=== PATIENT | female | born 1975 | race African-American/Black ===

== ENCOUNTER → 2017-06-02 | Outpatient (CLI) | payer OTHER | LOC: RAD 10:39 | DX: M54.41 Lumbago with sciatica, right side (principal) ==

== ENCOUNTER → 2018-04-26 | Outpatient (CLI) | payer OTHER | LOC: BC 01:53 | DX: N60.02 Solitary cyst of left breast (principal); N63.20 Unspecified lump in the left breast, unspecified quadrant ==

== ENCOUNTER → 2018-10-04 | Outpatient (CLI) | payer OTHER | LOC: RAD 05:28 → ULTRA 05:28 → RAD 14:35 | DX: N60.11 Diffuse cystic mastopathy of right breast (principal); N60.12 Diffuse cystic mastopathy of left breast ==

== ENCOUNTER → 2018-10-11 | Outpatient (CLI) | payer OTHER ==
--- NOTE | ~2018-10-11 | PATH ---
[facility] [address] [place] [address] PATHOLOGY RPT PROCEDURE Name: HANNA GRIFFITHS Room #: REG HIPOLITO Zuniga.#: [id number] Admission: 10/11/18 Date of : 73 Discharge: Report #: [id number] Path Case #: [id number] [facility] Accession Number: [id number] . 01 Material submitted: . LEFT BREAST MASS 1:00, 8 CMFN . 01 Clinical history: . Mass breast 1:00 8 cm . 02 Diagnosis: Breast, left breast mass 1:00, 8 cm from nipple, needle core biopsy: - Benign breast tissue with fibroadenomatoid changes, usual ductal hyperplasia, columnar cell change and apocrine metaplasia. - Negative for atypia or malignancy. [facility]/10/13/2018 . 02 Comment: A CK5/6 immunohistochemical stain is performed on block A3 and shows intact mosaic pattern, consistent with usual ductal hyperplasia. . Apprentice Plumber slides are co-reviewed by Dr. Wanda Feliciano who concurs with my diagnosis. (IUV:pit 10/13/2018) . 02 Electronically signed: . Liza Chavez MD, Pathologist NPI- [id number] . 01 Gross description: . The specimen is received in formalin, labeled "Hanna Griffiths, left breast 1:00 8 cm" and consists of 8 needle cores of pink-harrison to yellow tissue measuring between 0.9 cm and 2.3 cm in length and ranging from 0.3-0.4 cm in diameter. They are entirely submitted in A1-A3. The cold ischemic time is 5 minutes and the total formalin fixation time is greater than 6 hours but less than 72 hours. (SDY; 10/11/2018) MORGANU/MORGANU . 02 Pathologist provided ICD-10: N62, N60.22 . 02 CPT . 589318, N13725 Specimen Comment: A courtesy copy of this report has been sent to Specimen Comment: [phone], . Specimen Comment: Report sent to / [place] [address] PATHOLOGY RPT PROCEDURE Name: HANNA GRIFFITHS Room #: REG CL Nigel#: [id number] Admission: 10/11/18 Date of : 73 Discharge: Report #: [id number] Path Case #: [id number] Performed at: 01 [facility] Tapia [address] [facility] [address], [place], [place] [id number] MD Cayetano Carroll MD Phone: [phone] Performed at: [address] [id number] MD Liza Chavez MD Phone: [phone]
== END | disposition home or self-care (01) ==
LOC: ULTRA 01:12
DX: N60.92 Unspecified benign mammary dysplasia of left breast (principal); N60.22 Fibroadenosis of left breast; R92.1 Mammographic calcification found on diagnostic imaging of breast

== ENCOUNTER → 2019-05-30 | Outpatient (CLI) | payer OTHER ==
--- NOTE | 2019-06-01 11:09 | PATH ---
[facility] [address] [place] [address] PATHOLOGY RPT PROCEDURE Name: ELLY CARVER Room #: REG [facility]..#: [id number] ������������������ Admission: 05/30/19 ������������������ Date of : 73 Discharge: Report #: [id number] Path Case #: [id number] [facility] Accession Number: [id number] . 01 Material submitted: . PART A: breast - RIGHT BREAST MASS,1:00. Modifiers: right, 1:00 PART B: breast - RIGHT BREAST MASS, 9:00. Modifiers: right, 9:00 . 01 Clinical history: . Complex masses, right breast . 02 Diagnosis: A. Breast, right breast 1:00, 3 cm from nipple, needle core biopsy: - Fibroadenoma associated with adenosis and columnar cell change. - Negative for atypia or malignancy. . B. Breast, right breast 9:00, 2 cm from nipple, needle core biopsy: - Fibroadenoma. - Negative for atypia or malignancy. . (IUV:parts person; 05/31/2019) [facility]/05/31/2019 . 02 Comment: Dr. Wanda Feliciano has seen account services representative slides (level 2 slides) of this case and concurs with the diagnosis rendered. (IUV:parts person; 05/31/2019) . 02 Electronically signed: . Liza Chavez MD, Pathologist NPI- [id number] . 01 Gross description: . A. Received in formalin labeled "Mali Carver, right breast 1:00 3 cm," are multiple needle cores of yellow-herrera fibrofatty tissue measuring 1.3 x 0.5 x 0.1 cm in aggregate dimensions. The tissue is submitted in its entirety in cassette A1 through A3. The cold ischemic time is none provided. The total formalin fixation time is greater than 7 hours and less than 72 hours. . B. Received in formalin labeled "Mali Carver, right breast 9:00 2 cm," are multiple needle cores of yellow-herrera fibrofatty tissue measuring 2.0 x 0.6 x 0.2 cm in aggregate dimensions. The tissue is submitted in its entirety in cassette B1 through B3. The cold ischemic time is unknown. The total formalin fixation time is greater than 7 hours and less than 72 hours. (TSD; 05/30/2019) [address] [address] PATHOLOGY RPT PROCEDURE Name: CARVER,ELLY Rex Room #: REG HIPOLITO Manning#: [id number] ������������������ Admission: 05/30/19 ������������������ Date of : 73 Discharge: Report #: [id number] Path Case #: [id number] TOB/TOB . 02 Pathologist provided ICD-10: D24.1 . 02 CPT . 819405, 645646 Specimen Comment: A courtesy copy of this report has been sent to Specimen Comment: [phone]. Specimen Comment: Report sent to DR BERNAL Performed at: [address], [place] [id number] MD Cayetano Carroll MD Phone: [phone] Performed at: [address] [id number] MD Liza Chavez MD Phone: [phone]
== END | disposition home or self-care (01) ==
LOC: ULTRA 08:34 → RAD 08:34
DX: D24.1 Benign neoplasm of right breast (principal); N60.21 Fibroadenosis of right breast; R92.0 Mammographic microcalcification found on diagnostic imaging of breast; Z79.899 Other long term (current) drug therapy; Z98.890 Other specified postprocedural states

== ENCOUNTER → 2019-08-28 | Outpatient (CLI) | payer OTHER | LOC: ULTRA 10:05 | DX: N92.0 Excessive and frequent menstruation with regular cycle (principal); Z88.8 Allergy status to other drugs, medicaments and biological substances ==